=== PATIENT | male | born 1950 | race Caucasian/White ===

== ENCOUNTER 2017-01-17 14:02 | Emergency (ER) | payer OTHER ==
[~2017-01-17] VITALS: Ht 185.4 cm; Wt 136.4 kg
[2017-01-17 14:16] VITALS: BP 196/106; PULSE 64; RESP 14; TEMP 98.5; O2SAT 95
--- NOTE | 2017-01-17 14:40 | PD ---
HPI Chief Complaint: Hypertension Time Seen by Provider: 14:39 Travel History International Travel<30 days: No Contact w/Intl Traveler<30days: No Traveled to known affect area: No History of Present Illness HPI 66-year-old male was brought in from [place] by EMS for hypertension. Patient says he has not had his blood pressure medication 2 months since he changed doctors. He went to [place] today to get his prescription refilled and they checked his blood pressure and it was high. They called EMS. Patient does not have any chest pain, headache, blurred vision or any other symptoms. His blood pressure was 200 systolic and ER. He was awake and answering questions appropriately. He is also out of his metformin as well. However this morning he got his blood pressure medications and took one of each like he is supposed to. [facility] Past Medical History Narrative Medical List of his past medical, surgical, social and family history was reviewed from the nursing note. High Cholesterol: Yes Diabetes: Yes Patient Takes Glucophage: Yes (metformin today) Hypertension: Yes Past Surgical History Surgical History: No Previous Surgery Social History Alcohol Use: Yes (pint of vodka a day) Tobacco Use: No Substance Use: No Allergies-Medications (Allergen,Severity, Reaction): Coded Allergies: No Known Allergies (Unverified , 01/17/17) Comments No known drug allergies. Reported Meds & Prescriptions Reported Meds & Active Scripts Active Metformin (Metformin HCl) 500 Mg Tab 500 Mg PO BIDPC With meals Narrative Medication I looked at the patient's medication pack that he brought with himself. The nurses to the medical reconciliation. Review of Systems Except as stated in HPI: all other systems reviewed are Neg Physical Exam Narrative GENERAL: Awake, alert, no obvious distress SKIN: Focused skin assessment warm/dry. HEAD: Atraumatic. Normocephalic. EYES: Pupils equal and round. No scleral icterus. No injection or drainage. ENT: No nasal bleeding or discharge. Mucous membranes pink and moist. NECK: Trachea midline. No JVD. CARDIOVASCULAR: Regular rate and rhythm. No murmur appreciated. RESPIRATORY: No accessory muscle use. Clear to auscultation. Breath sounds equal bilaterally. GASTROINTESTINAL: Abdomen soft, non-tender, nondistended. Hepatic and splenic margins not palpable. MUSCULOSKELETAL: No obvious deformities. No clubbing. No cyanosis. No edema. NEUROLOGICAL: Awake and alert. No obvious cranial nerve deficits. Motor grossly within normal limits. Normal speech. PSYCHIATRIC: Appropriate mood and affect; insight and judgment normal. Data Data Last Documented VS Vital Signs Date Time Temp Pulse Resp B/P Pulse Ox O2 Delivery O2 Flow Rate FiO2 01/17/17 15:56 63 17 128/69 96 Room Air 01/17/17 14:16 98.5 Orders Clonidine (Catapres) (01/17/17 14:45) Blood Glucose (01/17/17 14:44) MDM Medical Decision Making Medical Screen Exam Complete: Yes Emergency Medical Condition: Yes Medical Record Reviewed: Yes Differential Diagnosis Essential hypertension, noncompliance Narrative Course 4:02 PM patient was given by mouth clonidine 0.2 mg. His current blood pressure is 128 systolic. I'm comfortable discharging him home. His blood glucose level was 111. Procedures EKG Prior to Arrival: No Diagnosis Primary Impression: Essential hypertension Additional Impression: Noncompliance Referrals: Primary Care Physician 1 week Additional Instructions: Please return to the ER if the condition worsens or any other new concerns. Otherwise follow-up with your primary care. Continue taking all your medication without missing any dose. Scripts Metformin 500 Mg [id number] Mg PO BIDPC #60 TAB Ref 0 With meals Prov:Billy Diallo MD 01/17/17 Disposition: 01 DISCHARGE HOME Condition: Stable Billy Diallo MD Jan 17, 2017 14:39
[2017-01-17] MEDS ORDERED: cloNIDine HCL 0.2 MG TAB PO ONE (14:45)
[2017-01-17 14:51] VITALS: BP 205/115; PULSE 66; RESP 18; O2SAT 97
[2017-01-17 15:56] VITALS: BP 128/69; PULSE 63; RESP 17; O2SAT 96
[2017-01-17] MEDS ORDERED: METF500T PO (16:05)
== END 2017-01-17 16:44 | disposition home or self-care (01) ==
LOC: NEPA 14:02
DX: I10 Essential (primary) hypertension (principal); E11.9 Type 2 diabetes mellitus without complications; E78.00 Pure hypercholesterolemia, unspecified; Z79.84 Long term (current) use of oral hypoglycemic drugs; Z79.899 Other long term (current) drug therapy; Z91.14 Patient's other noncompliance with medication regimen
CPT/HCPCS: 99283